=== PATIENT | male | born 1945 | race African-American/Black ===

== ENCOUNTER 2024-05-15 06:53 | Inpatient (IN) | payer MEDICARE ==
[~2024-05-15] VITALS: Ht 167.6 cm; Wt 108.9 kg
[2024-05-15] VITALS (19 sets, daily range): BP systolic 95–170; BP diastolic 52–98
[2024-05-15] MEDS ORDERED: ONDANSETRON HCl 4 MG/2 ML SDV IV ONE (07:10)
[2024-05-15] MEDS ORDERED: SODIUM CHLORIDE 0.9% 1,000 ML IV ONE (07:15)
[2024-05-15 07:51] LABS: BASO% 0.2 % (0-3); HEMOGLOBIN 14.9 g/dl (14.0-18.0); IMMATURE GRANULOCYTES 0.1 % (0.0-5.0); LYMPH% 3.8 % (15-41); MEAN CORPUSCULAR HGB 28.8 pG CALC (26.0-32.0); MEAN CORPUSCULAR HGB CONC 32.4 g/dL CAL (32.0-36.0); MONO% 3.4 % (2-13); NEUT# 10.2 thou/uL (1.82-7.42); NEUT% 92.5 % (42-76); RED BLOOD COUNT 5.17 mill/uL (4.70-6.10); RED CELL DISTRI WIDTH 14.1 % (11.5-15.5)
[2024-05-15 08:01] LABS: ALBUMIN 4.3 g/dL (3.2-5.0); POTASSIUM 3.5 mmol/l (3.5-5.1); TOTAL PROTEIN 8.1 g/dL (6.3-8.2)
[2024-05-15] MEDS ORDERED: PROMETHAZINE HCL 25 MG/ML AMP IM ONE (08:50)
[2024-05-15] MEDS ORDERED: KETOROLAC TROMETHAMINE 15 MG/ML SDV IV ONE (08:50)
[2024-05-15 09:11] LABS: URINE BILIRUBIN - DIPSTICK Negative (NEGATIVE); URINE BLOOD DIPSTICK Trace-intact (NEGATIVE); URINE GLUCOSE - DIPSTICK 250 mg/dL (NEGATIVE); URINE KETONE Trace mg/dL (NEGATIVE); URINE LEUK ESTERASE Negative (NEGATIVE); URINE NITRITE - DIPSTICK Negative (Negative); URINE PROTEIN - DIPSTICK 100 mg/dL (NEG-TRACE)
[2024-05-15 09:13] LABS: URINE COLOR Yellow
[2024-05-15 09:27] LABS: URINE BACTERIA RARE hpf; URINE MUCUS FEW hpf (NONE-FEW)
[2024-05-15] MEDS ORDERED: PIPERACILLIN Sodium-Tazobactam 3.375 GM in SODIUM CHLORIDE 0.9% 100 ML IV ONE (09:40)
[2024-05-15] MEDS ORDERED: SODIUM CHLORIDE 0.9% 1,000 ML IV PRN (10:00)
[2024-05-15] MEDS ORDERED: ONDANSETRON HCl 4 MG/2 ML SDV IV PRN (10:00)
[2024-05-15] MEDS ORDERED: ACETAMINOPHEN 325 MG/TAB PO PRN (10:00)
[2024-05-15] MEDS ORDERED: MAGNESIUM HYDROXIDE 30 ML UDC PO PRN (10:00)
[2024-05-15] MEDS ORDERED: LOSARTAN POTAS100 MG PO (10:02)
[2024-05-15] MEDS ORDERED: ROSUVASTATIN CAL5 MG (10:03)
[2024-05-15] MEDS ORDERED: GABAPENTIN100 MG PO (10:03)
[2024-05-15] MEDS ORDERED: METFORMIN HCL1000 MG PO (10:04)
[2024-05-15] MEDS ORDERED: HYDROCHLOROT12.5 M1 PO (10:05)
[2024-05-15] MEDS ORDERED: INSULIN LISPRO 100 UNITS/ML ML SC SCH (11:00)
[2024-05-15] MEDS ORDERED: KETOROLAC TROMETHAMINE 15 MG/ML SDV IV PRN (13:30)
[2024-05-15] MEDS ORDERED: TAMSULOSIN0.4 MG PO (13:49)
[2024-05-15] MEDS ORDERED: GABAPENTIN 100 MG/CAP PO PRN (13:55)
[2024-05-15] MEDS ORDERED: PIPERACILLIN Sodium-Tazobactam 3.375 GM in SODIUM CHLORIDE 0.9% 100 ML IV SCH (16:00)
[2024-05-15] MEDS ORDERED: Zaleplon 5 MG/CAP PO PRN (19:50)
[2024-05-15] MEDS ORDERED: TAMSULOSIN HCL 0.4 MG CAP PO SCH (21:00)
[2024-05-15] MEDS ORDERED: hydroCHLOROthiazide 12.5 MG/CAP PO SCH (21:00)
[2024-05-15] MEDS ORDERED: ENOXAPARIN SODIUM 40 MG/0.4 ML SYR SC SCH (21:00)
[2024-05-16] VITALS (7 sets, daily range): BP systolic 156–172; BP diastolic 62–79
[2024-05-16 06:34] LABS: BASO% 0.1 % (0-3); HEMOGLOBIN 15.1 g/dl (14.0-18.0); IMMATURE GRANULOCYTES 0.2 % (0.0-5.0); LYMPH% 4.5 % (15-41); MEAN CELL VOLUME 90.9 fL CALC (80.0-100.0); MEAN CORPUSCULAR HGB 29.8 pG CALC (26.0-32.0); MEAN CORPUSCULAR HGB CONC 32.8 g/dL CAL (32.0-36.0); MONO% 4.2 % (2-13); NEUT# 17.43 thou/uL (1.82-7.42); RED BLOOD COUNT 5.06 mill/uL (4.70-6.10); RED CELL DISTRI WIDTH 14.4 % (11.5-15.5)
[2024-05-16 06:55] LABS: ALBUMIN 3.8 g/dL (3.2-5.0); BILIRUBIN, TOTAL 0.8 mg/dL (0.2-1.3); CREATININE 0.9 mg/dL (0.7-1.3); MAGNESIUM 1.9 mg/dL (1.6-2.3); POTASSIUM 3.1 mmol/l (3.5-5.1); TOTAL PROTEIN 7.1 g/dL (6.3-8.2)
[2024-05-16] MEDS ORDERED: LOSARTAN Potassium 50 MG/TAB PO SCH (09:00)
[2024-05-16] MEDS ORDERED: hydrALAZINE HCL 20 MG/ML VIAL(1 ML) IV PRN (10:25)
[2024-05-16] MEDS ORDERED: POTASSIUM CHLORIDE 20MEQ 100 ML IV SCH (11:00)
[2024-05-17] VITALS (7 sets, daily range): BP systolic 162–192; BP diastolic 82–101
[2024-05-17 05:46] LABS: BASO% 0.1 % (0-3); HEMATOCRIT 45.6 % (39.0-50.0); HEMOGLOBIN 15.3 g/dl (14.0-18.0); IMMATURE GRANULOCYTES 0.2 % (0.0-5.0); LYMPH% 5.5 % (15-41); MEAN CELL VOLUME 87.9 fL CALC (80.0-100.0); MEAN CORPUSCULAR HGB 29.5 pG CALC (26.0-32.0); MEAN CORPUSCULAR HGB CONC 33.6 g/dL CAL (32.0-36.0); MONO% 5.7 % (2-13); NEUT# 12.36 thou/uL (1.82-7.42); NEUT% 88.5 % (42-76); RED BLOOD COUNT 5.19 mill/uL (4.70-6.10); RED CELL DISTRI WIDTH 14.2 % (11.5-15.5)
[2024-05-17 05:50] LABS: ALBUMIN 3.7 g/dL (3.2-5.0); BILIRUBIN, TOTAL 0.7 mg/dL (0.2-1.3); CREATININE 0.7 mg/dL (0.7-1.3); POTASSIUM 2.9 mmol/l (3.5-5.1); TOTAL PROTEIN 6.9 g/dL (6.3-8.2)
[2024-05-17] MEDS ORDERED: POTASSIUM CHLORIDE 20MEQ 100 ML IV SCH (08:30)
[2024-05-17] MEDS ORDERED: DIATRIZOATE MEGLUMINE & SODIUM 30 ML/BTL PO ONE (14:55)
[2024-05-17] MEDS ORDERED: DIATRIZOATE MEGLUMINE & SODIUM 30 ML/BTL PO SCH (16:15)
[2024-05-17] MEDS ORDERED: LABETALOL HCL 20 MG/ 4 ML CARTRG IV PRN (18:15)
[2024-05-17] MEDS ORDERED: metFORMIN HYDROCHLORIDE 500 MG/TAB PO SCH (21:00)
[2024-05-18] VITALS (9 sets, daily range): BP systolic 150–190; BP diastolic 58–102
[2024-05-18 05:59] LABS: BASO% 0.2 % (0-3); EOS% 0.3 % (0-8); HEMATOCRIT 46.6 % (39.0-50.0); HEMOGLOBIN 15.6 g/dl (14.0-18.0); IMMATURE GRANULOCYTES 0.2 % (0.0-5.0); LYMPH% 7.4 % (15-41); MEAN CELL VOLUME 87.8 fL CALC (80.0-100.0); MEAN CORPUSCULAR HGB 29.4 pG CALC (26.0-32.0); MEAN CORPUSCULAR HGB CONC 33.5 g/dL CAL (32.0-36.0); MONO% 8.3 % (2-13); NEUT# 7.75 thou/uL (1.82-7.42); NEUT% 83.6 % (42-76); RED BLOOD COUNT 5.31 mill/uL (4.70-6.10); RED CELL DISTRI WIDTH 13.8 % (11.5-15.5)
[2024-05-18 06:09] LABS: ALBUMIN 3.7 g/dL (3.2-5.0); BILIRUBIN, TOTAL 0.9 mg/dL (0.2-1.3); CREATININE 0.7 mg/dL (0.7-1.3); MAGNESIUM 2.1 mg/dL (1.6-2.3); TOTAL PROTEIN 6.9 g/dL (6.3-8.2)
[2024-05-18] MEDS ORDERED: amLODIPine BESYLATE 5 MG/TAB PO SCH (09:00)
[2024-05-18] MEDS ORDERED: POTASSIUM CHLORIDE 20MEQ 100 ML IV SCH (09:00)
[2024-05-19 03:50] VITALS: BP 167/74
[2024-05-19 06:03] LABS: BASO% 0.3 % (0-3); EOS% 0.9 % (0-8); HEMATOCRIT 47.8 % (39.0-50.0); HEMOGLOBIN 16.1 g/dl (14.0-18.0); IMMATURE GRANULOCYTES 0.3 % (0.0-5.0); LYMPH% 12.6 % (15-41); MEAN CELL VOLUME 87.7 fL CALC (80.0-100.0); MEAN CORPUSCULAR HGB 29.5 pG CALC (26.0-32.0); MEAN CORPUSCULAR HGB CONC 33.7 g/dL CAL (32.0-36.0); MONO% 11.1 % (2-13); NEUT# 5.59 thou/uL (1.82-7.42); NEUT% 74.8 % (42-76); RED BLOOD COUNT 5.45 mill/uL (4.70-6.10)
[2024-05-19 06:23] LABS: ALBUMIN 3.8 g/dL (3.2-5.0); BILIRUBIN, TOTAL 1.2 mg/dL (0.2-1.3); CREATININE 0.6 mg/dL (0.7-1.3); MAGNESIUM 2.3 mg/dL (1.6-2.3); POTASSIUM 3.6 mmol/l (3.5-5.1); TOTAL PROTEIN 7.2 g/dL (6.3-8.2)
[2024-05-19 06:42] VITALS: BP 178/88
[2024-05-19 08:21] VITALS: BP 178/88
[2024-05-19] MEDS ORDERED: CIPROFLOXACN500 MG PO (10:06)
[2024-05-19] MEDS ORDERED: METRONIDAZOLE500 MG PO (10:07)
[2024-05-19] MEDS ORDERED: AMLODIPINE BESYL5 MG PO (10:07)
[2024-05-19 10:25] VITALS: BP 164/70
[2024-05-19] MEDS ORDERED: metFORMIN HYDROCHLORIDE 500 MG/TAB PO SCH (17:30)
== END 2024-05-19 11:31 | disposition home or self-care (01) | DRG 392 ==
LOC: ED 06:53 → ED-I 09:00 → ED 09:45 → MS2 09:46
PROVIDERS: Family Medicine; Internal Medicine; Nurse Practitioner Family; ADMIT Internal Medicine; ATTEND Internal Medicine
DX: K52.9 Noninfective gastroenteritis and colitis, unspecified (principal); I10 Essential (primary) hypertension; E11.42 Type 2 diabetes mellitus with diabetic polyneuropathy; E87.6 Hypokalemia; K40.90 Unilateral inguinal hernia, without obstruction or gangrene, not specified as recurrent; E66.9 Obesity, unspecified; N40.0 Benign prostatic hyperplasia without lower urinary tract symptoms; Z68.38 Body mass index [BMI] 38.0-38.9, adult; Z79.84 Long term (current) use of oral hypoglycemic drugs
CPT/HCPCS: J0360; J1650; J1815; J1885; J2405; J2543; J2550; J3480; Q9967